=== PATIENT | male | born 1940 | race African-American/Black ===

== ENCOUNTER 2017-12-22 20:30 | Outpatient (CLI) | payer MEDICARE, OTHER | END 2017-12-22 20:31 | disposition home or self-care (01) | LOC: SLEEPLAB 20:30 | PROVIDERS: ATTEND Family Medicine | DX: G47.33 Obstructive sleep apnea (adult) (pediatric) (principal) | CPT/HCPCS: 95810 ==

== ENCOUNTER 2017-12-23 11:15 | Outpatient (CLI) | payer MEDICARE, OTHER | END 2017-12-23 11:16 | disposition home or self-care (01) | LOC: BICRAD 11:15 | PROVIDERS: ATTEND Family Medicine | DX: M25.571 Pain in right ankle and joints of right foot (principal); M25.572 Pain in left ankle and joints of left foot ==

== ENCOUNTER 2018-01-31 20:30 | Outpatient (CLI) | payer MEDICARE, OTHER | END 2018-01-31 20:31 | disposition home or self-care (01) | LOC: SLEEPLAB 20:30 | PROVIDERS: ATTEND Family Medicine | DX: G47.33 Obstructive sleep apnea (adult) (pediatric) (principal) | CPT/HCPCS: 95811 ==